=== PATIENT | male | born 1940 | race Caucasian/White ===

== ENCOUNTER 2020-09-17 08:20 | Outpatient (REF) | payer MEDICARE, SELFPAY ==
[2020-09-17 09:35] LABS: Hematocrit 33.1 % (42-52); Hemoglobin 10.1 g/dl (14.0-18.0); Mean Corpuscular HGB Conc 30.5 g/dl (31.0-36.0); Mean Corpuscular Hemoglobin 29.9 pg (27.0-33.0); Mean Corpuscular Volume 97.9 fL (80-98); Mean Platelet Volume 11.5 fL (9.4-12.4); NRBC Pct Auto 0.9 /100WBC (0.0-0.2); Platelet Count 299 X10*3/uL (160-400); Red Blood Count 3.38 X10*6/uL (4.60-5.80); Red Cell Distribution Width 18.8 % (11.0-16.0)
[2020-09-17 10:09] LABS: Alanine Aminotransferase 26 U/L (0-40); Albumin Level 4.3 g/dL (3.5-5.0); Alkaline Phosphatase 98 U/L (39-117); Anion Gap 11 (12-20); Aspartate Amino Transferase 42 U/L (5-37); Bilirubin Total 0.8 mg/dL (0.0-1.0); Blood Urea Nitrogen 16 mg/dL (9-16); Calcium 8.5 mg/dL (8.4-10.2); Carbon Dioxide 30 mmol/L (22-29); Chloride 103 mmol/L (96-108); Cholesterol 102 mg/dL; Estimated Glomerular Filt Rate > 60; Glucose Fasting 93 mg/dL (60-99); HDL Cholesterol 20 mg/dL; LDL Cholesterol Calculated 49 mg/dl; Potassium 4.6 mmol/l (3.3-5.1); Sodium 139 mmol/L (135-145); Total Protein 6.6 g/dL (6.5-8.0); Triglycerides 165 mg/dL
[2020-09-17 10:20] LABS: TSH reflex Free T4 3.04 mIU/mL (0.32-4.0)
[2020-09-17 10:33] LABS: Folate 7.3 ng/mL (> or = 4.0); Vitamin B12 670 pg/mL (200-900)
[2020-09-17 10:57] LABS: Atypical Lymph Absolute Manual 0.1 x10*3/uL; Atypical Lymphs Percent Manual 1 % (0-6); Band Neutrophils Percent 32 % (3-5); Basophils Abs Manual 0.1 X10*3/uL (0.0-0.3); Basophils Percent Manual 1 % (0-1); Blast Percent 1 %; Blastocytes Absolute 0.1 X10*3/uL; Lymphocytes Absolute Manual 1.3 X10*3/uL (0.6-4.8); Lymphocytes Percent Manual 13 % (20-40); Metamyelocytes Absolute 0.4 X10*3/uL; Metamyelocytes Percent 4 %; Monocytes Absolute Manual 0.1 X10*3/uL (0.0-1.2); Monocytes Percent Manual 1 % (2-11); Myelocytes Absolute 0.2 X10*/uL; Myelocytes Percent 2 %; Neutrophils Absolute Manual 7.6 X10*3/uL (2.2-7.9); Neutrophils Percent Manual 44 % (45-73); Nucleated Red Blood Cells 3 /100WBC (0-0); Promyelocytes Absolute 0.1 X10*3/uL; Promyelocytes Percent 1 %; RBC Morphology NOTED
[2020-09-17 10:58] LABS: Microcytosis 1+; Tear Drop Cells 2+
[2020-09-17 10:59] LABS: Hypochromasia 1+; Macrocytosis 1+; Ovalocytes 1+; Platelet Estimate NORMAL (NORMAL); Platelet Morphology Comment NORMAL
== END 2020-09-17 08:21 | disposition home or self-care (01) ==
LOC: HO.LAB 08:20
PROVIDERS: PCP Internal Medicine; Visit Provider Internal Medicine
DX: I25.10 Atherosclerotic heart disease of native coronary artery without angina pectoris (principal); E78.00 Pure hypercholesterolemia, unspecified; G30.9 Alzheimer's disease, unspecified
CPT/HCPCS: 36415; 80053; 80061; 82607; 82746; 84443; 85007; 85027; 85060

== ENCOUNTER 2020-11-02 | Outpatient (REF) | payer MEDICARE, SELFPAY ==
[2020-11-02 11:01] LABS: Hematocrit 29.6 % (42-52); Hemoglobin 9.3 g/dl (14.0-18.0); Mean Corpuscular HGB Conc 31.4 g/dl (31.0-36.0); Mean Corpuscular Hemoglobin 30.8 pg (27.0-33.0); Mean Platelet Volume 11.8 fL (9.4-12.4); NRBC Pct Auto 0.8 /100WBC (0.0-0.2); Platelet Count 255 X10*3/uL (160-400); Red Blood Count 3.02 X10*6/uL (4.60-5.80); Red Cell Distribution Width 19.4 % (11.0-16.0); White Blood Count 7.9 X10*3/uL (4.8-10.8)
[2020-11-02 11:30] LABS: Alanine Aminotransferase 24 U/L (0-40); Albumin Level 4.1 g/dL (3.5-5.0); Alkaline Phosphatase 98 U/L (39-117); Anion Gap 11 (12-20); Aspartate Amino Transferase 46 U/L (5-37); Bilirubin Total 0.8 mg/dL (0.0-1.0); Blood Urea Nitrogen 16 mg/dL (9-16); Calcium 8.5 mg/dL (8.4-10.2); Carbon Dioxide 29 mmol/L (22-29); Chloride 103 mmol/L (96-108); Estimated Glomerular Filt Rate > 60; Glucose Random 175 mg/dL (60-115); Potassium 4.2 mmol/l (3.3-5.1); Sodium 139 mmol/L (135-145); Total Protein 6.4 g/dL (6.5-8.0)
[2020-11-02 11:36] LABS: Atypical Lymph Absolute Manual 0.1 x10*3/uL; Atypical Lymphs Percent Manual 1 % (0-6); Band Neutrophils Percent 27 % (3-5); Basophils Abs Manual 0.2 X10*3/uL (0.0-0.3); Basophils Percent Manual 3 % (0-1); Eosinophils Absolute Manual 0.3 X10*3/UL (0.0-0.8); Eosinophils Percent Manual 4 % (0-4); Lymphocytes Absolute Manual 1.2 X10*3/uL (0.6-4.8); Lymphocytes Percent Manual 15 % (20-40); Metamyelocytes Absolute 0.6 X10*3/uL; Metamyelocytes Percent 7 %; Monocytes Absolute Manual 0.2 X10*3/uL (0.0-1.2); Monocytes Percent Manual 2 % (2-11); Myelocytes Absolute 0.4 X10*/uL; Myelocytes Percent 5 %; Neutrophils Absolute Manual 4.9 X10*3/uL (2.2-7.9); Neutrophils Percent Manual 35 % (45-73); Promyelocytes Absolute 0.1 X10*3/uL; Promyelocytes Percent 1 %
[2020-11-02 11:37] LABS: Acanthocytes 1+; Microcytosis 1+; Platelet Estimate NORMAL (NORMAL); Platelet Morphology Comment L; Polychromasia 1+; RBC Morphology NOTED
[2020-11-02 11:38] LABS: Ovalocytes 2+; Tear Drop Cells 2+
== END 2020-11-02 00:01 ==
LOC: HO.LHD
PROVIDERS: Visit Provider Internal Medicine Medical Oncology
DX: D46.9 Myelodysplastic syndrome, unspecified (principal)
CPT/HCPCS: 36415; 80053; 85007; 85027

== ENCOUNTER 2020-12-04 06:41 | Outpatient (REF) | payer MEDICARE, SELFPAY ==
[2020-12-04 10:26] LABS: Hematocrit 29.3 % (42-52); Hemoglobin 9.3 g/dl (14.0-18.0); Mean Corpuscular HGB Conc 31.7 g/dl (31.0-36.0); Mean Corpuscular Hemoglobin 31.5 pg (27.0-33.0); Mean Corpuscular Volume 99.3 fL (80-98); Mean Platelet Volume 11.8 fL (9.4-12.4); NRBC Pct Auto 0.8 /100WBC (0.0-0.2); Platelet Count 248 X10*3/uL (160-400); Red Blood Count 2.95 X10*6/uL (4.60-5.80); Red Cell Distribution Width 19.1 % (11.0-16.0)
[2020-12-04 11:01] LABS: Alanine Aminotransferase 22 U/L (0-40); Albumin Level 4.1 g/dL (3.5-5.0); Alkaline Phosphatase 102 U/L (39-117); Anion Gap 12 (12-20); Aspartate Amino Transferase 44 U/L (5-37); Bilirubin Total 0.8 mg/dL (0.0-1.0); Blood Urea Nitrogen 15 mg/dL (9-16); Calcium 8.5 mg/dL (8.4-10.2); Carbon Dioxide 28 mmol/L (22-29); Chloride 102 mmol/L (96-108); Estimated Glomerular Filt Rate > 60; Glucose Random 183 mg/dL (60-115); Potassium 4.2 mmol/l (3.3-5.1); Sodium 138 mmol/L (135-145); Total Protein 6.3 g/dL (6.5-8.0)
== END 2020-12-04 06:42 | disposition home or self-care (01) ==
LOC: HO.LHD 06:41
PROVIDERS: Visit Provider Internal Medicine Medical Oncology
DX: R79.89 Other specified abnormal findings of blood chemistry (principal)
CPT/HCPCS: 36415; 80053; 85027

== ENCOUNTER 2021-01-01 00:45 | Outpatient (REF) | payer MEDICARE, SELFPAY ==
[2021-01-01 10:49] LABS: Hematocrit 28.3 % (42-52); Hemoglobin 8.8 g/dl (14.0-18.0); Mean Corpuscular HGB Conc 31.1 g/dl (31.0-36.0); Mean Corpuscular Hemoglobin 30.8 pg (27.0-33.0); Mean Platelet Volume 11.8 fL (9.4-12.4); Platelet Count 247 X10*3/uL (160-400); Red Blood Count 2.86 X10*6/uL (4.60-5.80); Red Cell Distribution Width 19.1 % (11.0-16.0); White Blood Count 8.5 X10*3/uL (4.8-10.8)
[2021-01-01 10:54] LABS: NRBC Pct Auto 1.1 /100WBC (0.0-0.2)
[2021-01-01 11:16] LABS: Alanine Aminotransferase 24 U/L (0-40); Albumin Level 3.8 g/dL (3.5-5.0); Alkaline Phosphatase 110 U/L (39-117); Anion Gap 10 (12-20); Aspartate Amino Transferase 43 U/L (5-37); Blood Urea Nitrogen 13 mg/dL (9-16); Calcium 8.3 mg/dL (8.4-10.2); Carbon Dioxide 30 mmol/L (22-29); Chloride 104 mmol/L (96-108); Estimated Glomerular Filt Rate > 60; Glucose Random 120 mg/dL (60-115); Potassium 4.4 mmol/L (3.3-5.1); Sodium 140 mmol/L (135-145); Total Protein 5.7 g/dL (6.5-8.0)
== END 2021-01-01 00:46 | disposition home or self-care (01) ==
LOC: HO.LHD 00:45
PROVIDERS: Visit Provider Internal Medicine Medical Oncology
DX: D64.9 Anemia, unspecified (principal)
CPT/HCPCS: 36415; 80053; 85027

== ENCOUNTER 2021-01-29 06:53 | Outpatient (REF) | payer MEDICARE, SELFPAY ==
[2021-01-29 11:04] LABS: Hematocrit 27.6 % (42-52); Hemoglobin 8.5 g/dl (14.0-18.0); Mean Corpuscular HGB Conc 30.8 g/dl (31.0-36.0); Mean Corpuscular Hemoglobin 30.8 pg (27.0-33.0); Mean Platelet Volume 11.8 fL (9.4-12.4); NRBC Pct Auto 0.9 /100WBC (0.0-0.2); Platelet Count 244 X10*3/uL (160-400); Red Blood Count 2.76 X10*6/uL (4.60-5.80); Red Cell Distribution Width 19.6 % (11.0-16.0); White Blood Count 8.7 X10*3/uL (4.8-10.8)
[2021-01-29 11:31] LABS: Alanine Aminotransferase 15 U/L (0-40); Albumin Level 3.9 g/dL (3.5-5.0); Alkaline Phosphatase 109 U/L (39-117); Anion Gap 12 (12-20); Aspartate Amino Transferase 40 U/L (5-37); Blood Urea Nitrogen 16 mg/dL (9-16); Calcium 8.4 mg/dL (8.4-10.2); Carbon Dioxide 29 mmol/L (22-29); Chloride 102 mmol/L (96-108); Estimated Glomerular Filt Rate > 60; Glucose Random 183 mg/dL (60-115); Potassium 3.9 mmol/L (3.3-5.1); Sodium 139 mmol/L (135-145); Total Protein 5.9 g/dL (6.5-8.0)
[2021-01-29 12:09] LABS: Atypical Lymph Absolute Manual 0.1 x10*3/uL; Atypical Lymphs Percent Manual 1 % (0-6); Band Neutrophils Percent 24 % (3-5); Basophils Abs Manual 0.1 X10*3/uL (0.0-0.3); Basophils Percent Manual 1 % (0-1); Eosinophils Absolute Manual 0.2 X10*3/UL (0.0-0.8); Eosinophils Percent Manual 2 % (0-4); Lymphocytes Absolute Manual 1.2 X10*3/uL (0.6-4.8); Lymphocytes Percent Manual 14 % (20-40); Metamyelocytes Absolute 0.1 X10*3/uL; Metamyelocytes Percent 1 %; Monocytes Absolute Manual 0.3 X10*3/uL (0.0-1.2); Monocytes Percent Manual 3 % (2-11); Myelocytes Absolute 0.1 X10*/uL; Myelocytes Percent 1 %; Neutrophils Absolute Manual 6.6 X10*3/uL (2.2-7.9); Neutrophils Percent Manual 52 % (45-73); Nucleated Red Blood Cells 1 /100WBC (0-0); Promyelocytes Absolute 0.1 X10*3/uL; Promyelocytes Percent 1 %
[2021-01-29 12:11] LABS: Macrocytosis 1+; RBC Morphology NOTED
[2021-01-29 12:12] LABS: Hypochromasia 1+; Polychromasia 2+
[2021-01-29 12:14] LABS: Tear Drop Cells 1+
[2021-01-29 12:15] LABS: Platelet Estimate NORMAL (NORMAL); Platelet Morphology Comment NORMAL
[2021-02-01 14:40] LABS: Cholesterol 100 mg/dL; HDL Cholesterol 15 mg/dL; LDL Cholesterol Calculated 36 mg/dl; Triglycerides 247 mg/dL
== END 2021-01-29 06:54 | disposition home or self-care (01) ==
LOC: HO.LHD 06:53
PROVIDERS: Visit Provider Internal Medicine Medical Oncology
DX: D64.9 Anemia, unspecified (principal)
CPT/HCPCS: 36415; 80053; 80061; 85007; 85025; 85027

== ENCOUNTER 2021-02-19 04:30 | Outpatient (REF) | payer MEDICARE, SELFPAY ==
[2021-02-19 10:14] LABS: Hematocrit 31.2 % (42-52); Hemoglobin 9.3 g/dl (14.0-18.0); Mean Corpuscular HGB Conc 29.8 g/dl (31.0-36.0); Mean Corpuscular Hemoglobin 30.3 pg (27.0-33.0); Mean Corpuscular Volume 101.6 fL (80-98); Mean Platelet Volume 11.9 fL (9.4-12.4); Platelet Count 260 X10*3/uL (160-400); Red Blood Count 3.07 X10*6/uL (4.60-5.80); Red Cell Distribution Width 19.6 % (11.0-16.0); White Blood Count 11.8 X10*3/uL (4.8-10.8)
[2021-02-19 10:17] LABS: NRBC Pct Auto 1.4 /100WBC (0.0-0.2)
[2021-02-19 10:37] LABS: Alanine Aminotransferase 24 U/L (0-40); Albumin Level 4.1 g/dL (3.5-5.0); Alkaline Phosphatase 131 U/L (39-117); Anion Gap 13 (12-20); Aspartate Amino Transferase 51 U/L (5-37); Bilirubin Total 1.1 mg/dL (0.0-1.0); Blood Urea Nitrogen 14 mg/dL (9-16); Calcium 8.6 mg/dL (8.4-10.2); Carbon Dioxide 30 mmol/L (22-29); Chloride 103 mmol/L (96-108); Estimated Glomerular Filt Rate > 60; Glucose Random 149 mg/dL (60-115); Potassium 4.7 mmol/L (3.3-5.1); Sodium 141 mmol/L (135-145); Total Protein 6.5 g/dL (6.5-8.0)
[2021-02-19 10:39] LABS: Cholesterol 116 mg/dL; Triglycerides 209 mg/dL
[2021-02-19 10:53] LABS: HDL Cholesterol 19 mg/dL; LDL Cholesterol Calculated 56 mg/dl
== END 2021-02-19 04:31 | disposition home or self-care (01) ==
LOC: HO.LHD 04:30
PROVIDERS: Visit Provider Internal Medicine Medical Oncology
DX: E78.00 Pure hypercholesterolemia, unspecified (principal)
CPT/HCPCS: 36415; 80053; 80061; 85027

== ENCOUNTER 2021-03-07 11:30 | Outpatient (RCR) | payer MEDICARE, SELFPAY ==
[2020-10-16 13:57] VITALS: BP 141/90; PULSE 82; RESP 12; TEMP 37.2; O2SAT 97; BMI 24.9
[2020-10-16 15:05] LABS: Eos%MD 1.8 %; Hematocrit 29.7 % (42-52); Hemoglobin 9.1 g/dl (14.0-18.0); IG%MD 16.8 %; Immature Retic Fraction 33.5 % (2.3-13.4); Lymph%MD 10.4 %; Mean Corpuscular HGB Conc 30.6 g/dl (31.0-36.0); Mean Corpuscular Hemoglobin 30.1 pg (27.0-33.0); Mean Corpuscular Volume 98.3 fL (80-98); Mean Platelet Volume 11.5 fL (9.4-12.4); Mono%MD 5.3 %; Neut%MD 64.7 %; Platelet Count 289 X10*3/uL (160-400); Red Blood Count 3.02 X10*6/uL (4.60-5.80); Red Cell Distribution Width 19.4 % (11.0-16.0); Retic HGB Equivalent 30.5 pg (30.0-35.0); Reticulocyte Percent 3.4 % (0.5-1.8); Reticulocytes Absolute 0.102 X10*6/uL (0.026-0.095); White Blood Count 9.7 X10*3/uL (4.8-10.8)
[2020-10-16 15:09] LABS: NRBC Pct Auto 1.3 /100WBC (0.0-0.2)
--- NOTE | 2020-10-16 15:17 | PM.HEMONCCN ---
Subjective - Subjective Chief complaint: consult for anemia. Patient: new to practice Consult date: 10/16/20 Requesting Physician: Matteo. Primary Care Provider: Adriel Felipe MD Medical Summary: DIAGNOSIS: ANEMIA. HPI - Consult Narrative Reason for consult: NC/NC ANEMIA Narrative: Shay Cano is a pleasant 80 year old gentleman, with H/O Alzheimer's disease. He is non verbal. Hard to understand how much he understands. He is total care. His bathes and feeds him. He has a good apetite. He has gained weight. Lately it seems he has been getting more tired. His legs seemed to be weaker. He does get constipated and needs to be on a stool softener. Review of Systems - Constitutional Reports system reviewed and no additional complaints, except as documented, Reports fatigue, Denies fever(s) - Eyes Reports system reviewed and no additional complaints, except as documented - ENT Reports system reviewed and no additional complaints, except as documented - Cardiovascular Reports system reviewed and no additional complaints, except as documented PMFSH Medical History: Medical History (Last Updated 09/24/20 @ 13:03 by Adriel Felipe MD) Alzheimer's dementia Constipation Coronary artery disease Pure hypercholesterolemia Family History: Family History (Last Updated 10/16/20 @ 13:59 by Kirsty Walker) Father Medical history unknown Heart disease Mother Medical history unknown Family/Other Heart problem Brother Heart disease Surgical History: Surgical History (Last Reviewed 10/12/20 @ 20:42 by Adriel Felipe MD) History of bladder stone History of cholecystectomy History of cystoscopy History of intravascular stent placement Hx of transurethral resection of prostate S/P CABG x 3 Smoking status: Former smoker Home Medications and Allergies Home Medications Medication Instructions Recorded Confirmed Type aspirin 81 mg tablet,delayed 81 mg PO DAILY 09/24/20 10/16/20 History release rosuvastatin 20 mg tablet 20 mg PO DAILY 09/24/20 10/16/20 History sennosides 8.6 mg tablet 17.2 mg PO BEDTIME PRN 09/24/20 10/16/20 History Allergies Allergy/AdvReac Type Severity Reaction Status Date / Time simvastatin [SIMVASTATIN] Allergy Unknown UNKNOWN, Verified 09/24/20 13:00 rash Physical Exam Vital signs: Vital Signs Temp 98.9 F 10/16/20 13:57 Pulse 82 10/16/20 13:57 Resp 12 10/16/20 13:57 BP 141/90 H 10/16/20 13:57 Pulse Ox 97 10/16/20 13:57 Intake & Output 10/15/20 10/16/20 10/16/20 18:59 06:59 18:59 Other: Weight 67.9 kg Weight 67.9 kg - Constitutional Present: no acute distress - Routine HEENT Exam Head: Present: normal inspection ENT: Present: mucous membranes moist - Routine Neck Exam Present: supple - Routine Respiratory Exam Present: CTAB - Routine Cardiovascular Exam Cardiovascular: Present: RRR, S2 - Routine Abdominal Exam Present: soft, nontender - Routine Rectal Exam Patient deferred: digital exam - Routine Extremities Exam Present: nontender - Routine Skin Exam Present: intact - Routine Neurological Exam Present: alert, altered mental status - Detailed Neurological Exam: Coma Scale Eye Opening: Spontaneous (4) Verbal Response: Confused (4) - Routine Psychiatric Exam Present: flat affect, cooperative Hem/Onc Consult Result - Labs CBC & Chem 7: 10/16/20 14:55 10/16/20 14:55 Labs: Short CBC 10/16/20 Range/Units 14:55 WBC 9.7 (4.8-10.8) X10*3/uL Hgb 9.1 L (14.0-18.0) g/dl Hct 29.7 L (42-52) % Plt Count 289 (160-400) X10*3/uL Assessment and Plan (1) Anemia Status: Acute This is a pleasant 80-year-old gentleman with history of Alzheimer's Disease who has deteriorated in the past couple of years. He has been gradually getting more anemic. His CBC from March 08: WBC 10.5, ABS NEUT COUNT 8.0, ANC 6.7,RBC 4.02, HGB 12.6, HCT 37.7,MCV 93.7, MCH 31.4, MCHC 33.5, PLATELET 360. His CBC: From September 17: WBC 10, HGB 10.1, PLT 299. Peripheral smear: Leukoerythroblastosis. Left-shifted granulocytes are present, Including rare blasts. A few nucleated red blood cells are seen as well as some ovalocytes and Dacrocyanosis. Findings raise the possibility of a marrow disorder. 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 DIFFERENTIAL DIAGNOSIS: 2. IRON DEFICIENCY ANEMIA: will check iron studies and a ferritin. 3. HEMOLYTIC ANEMIA: will check a hemolytic screen. 4. B12/FOLATE DEFICIENCY: Check B12 and folate levels. 5. ACD: from kidney disease. 6. ANOTHER MYELO INFILTRATIVE DISORDER I.E. MULTIPLE MYELOMA, OR LYMPHOMA. PLAN: Will proceed with an anemia workup. Check LDH and SIEP. I will proceed with a type and screen in case he needs a transfusion. I discuss the role of a bone marrow exam as a next step in the workup. His is going to talk to her daughter and then give me a call back. If she wishes to proceed I will set it up. He will return in 2 weeks for a follow-up visit. Thank you, CC: Dr. Darrius Felipe. SSS. Patient's daughter called the following day. She said they had a family meeting with her mom and brothers. They are concerned that he would not understand and can be scared from the bone marrow procedure. They also decided not to proceed with any chemotherapy even if there were to make a diagnosis. They would like to focus more on palliative care. I did offer blood transfusions if they were interested. she will give me a call back once they decide.
[2020-10-16 15:30] LABS: Alanine Aminotransferase 25 U/L (0-40); Albumin Level 4.3 g/dL (3.5-5.0); Alkaline Phosphatase 92 U/L (39-117); Anion Gap 12 (12-20); Aspartate Amino Transferase 42 U/L (5-37); Bilirubin Total 0.8 mg/dL (0.0-1.0); Blood Urea Nitrogen 18 mg/dL (9-16); Calcium 8.6 mg/dL (8.4-10.2); Carbon Dioxide 28 mmol/L (22-29); Chloride 103 mmol/L (96-108); Creatinine Clr Calc Pharmacy 67.1; Estimated Glomerular Filt Rate > 60; Glucose Random 95 mg/dL (60-115); Iron 112 mcg/dL (45-160); Lactate Dehydrogenase 469 U/L (118-273); Percent Iron Saturation 41 % (15-50); Potassium 4.9 mmol/l (3.3-5.1); Sodium 138 mmol/L (135-145); Total Iron Binding Capacity 270 mcg/dL (228-428); Total Protein 6.5 g/dL (6.5-8.0); Unsaturated Iron Binding 158 ug/dL
[2020-10-16 15:47] LABS: Atypical Lymph Absolute Manual 0.1 x10*3/uL; Atypical Lymphs Percent Manual 1 % (0-6); Band Neutrophils Percent 23 % (3-5); Basophils Abs Manual 0.2 X10*3/uL (0.0-0.3); Basophils Percent Manual 2 % (0-1); Lymphocytes Absolute Manual 1.4 X10*3/uL (0.6-4.8); Lymphocytes Percent Manual 14 % (20-40); Metamyelocytes Absolute 0.5 X10*3/uL; Metamyelocytes Percent 5 %; Monocytes Absolute Manual 0.3 X10*3/uL (0.0-1.2); Monocytes Percent Manual 3 % (2-11); Myelocytes Absolute 0.7 X10*/uL; Myelocytes Percent 7 %; Neutrophils Absolute Manual 6.6 X10*3/uL (2.2-7.9); Neutrophils Percent Manual 45 % (45-73)
[2020-10-16 15:48] LABS: Ovalocytes 1+; Polychromasia 1+; RBC Morphology NOTED
[2020-10-16 15:49] LABS: Platelet Estimate NORMAL (NORMAL); Platelet Morphology Comment NORMAL; Tear Drop Cells 1+
[2020-10-16 15:50] LABS: Ferritin 176 ng/mL (20-250); Large Platelet PRESENT
[2020-10-16 16:02] LABS: Vitamin B12 630 pg/mL (200-900)
--- NOTE | 2020-10-17 12:32 | MHC.HEMONC ---
HOME DRAW request CBC/D - Dr. Javed would like Home Draw for Mr. Day on/around Thursday - Call to [employer] Jessica renner [phone] and Janay renner [phone] @ [facility] [place] lab, No answer. Left msg with Pt's name, #, and address. Pt's , Denisse, notified of plan. I will await call from lab for confirmation. Will cont. to follow until task completed.
--- NOTE | 2020-10-17 17:52 | MHC.HEMONC ---
HOME DRAW REQUEST HAS BEEN SCHEDULED with Jessica hopson at [facility] [place] lab for Thursday, . They will arrange time w pt's . Mrs. Cano notified and in agreement.
[2020-10-18 16:57] LABS: Haptoglobin 44 mg/dL (43-212)
[2020-10-19 06:12] LABS: IgA 153 mg/dL (70-320); IgG 986 mg/dL (600-1540); IgM 57 mg/dL (50-300)
--- NOTE | 2020-10-29 12:25 | MHC.HEMONC ---
PT'S LIAM CALLED TO INQUIRE ABOUT THE PT'S LABORATORY HOME DRAW IF IT WAS SET-UP BECAUSE NO ONE HAS BEEN TO THE HOUSE TO DRAW THE LAB DRAW
--- NOTE | 2020-10-29 12:31 | MHC.HEMONC ---
[employer] [employer] WILL SET-UP LABORATORY HOME DRAW FOR THE PATIENT
--- NOTE | 2020-11-01 08:41 | MHC.HEMONCMA ---
Called and spoke with Leslie, she said she is sorry she didnt get back to me, she thought someone got my message and lolly the patient. She states that she will call and have the patient scheduled for tomorrow. I refaxed the order.
[2020-11-12 11:34] VITALS: BP 151/83; PULSE 82; RESP 12; TEMP 36.7; O2SAT 100; BMI 24.3
--- NOTE | 2020-11-12 13:25 | MHC.HEMONCMA ---
Patient came in with his and family friend for a follow up, pts states he is doing well. Pt has home draw once a month and they would like to have his next f/u as a phone call. I scheduled the patient for 02/14/2021 at 2:30pm for a telehealth with dr neal.
--- NOTE | 2020-11-12 15:31 | PM.HEMONCPN ---
Medical Summary - Medical Summary Date of Service: 11/12/20 Chief complaint: Follow-up for anemia. Medical Summary: DIAGNOSIS: ANEMIA. Interval History Interval history: Shay Cano is a pleasant 80 year old gentleman, with H/O Alzheimer's disease. He is non verbal. Hard to understand how much he understands. He is total care. His bathes and feeds him. He has a good apetite. He has gained weight. Lately it seems he has been getting more tired. His legs seemed to be weaker. He does get constipated and needs to be on a stool softener. Review of Systems - Constitutional Reports system reviewed and no additional complaints, except as documented, Reports fatigue - Eyes Reports system reviewed and no additional complaints, except as documented - ENT Reports system reviewed and no additional complaints, except as documented - Cardiovascular Reports system reviewed and no additional complaints, except as documented - Respiratory Reports no additional respiratory complaints - Gastrointestinal Reports system reviewed and no additional complaints, except as documented - Genitourinary Genitourinary: Reports no additional male genitourinary complaints - Musculoskeletal Reports system reviewed and no additional complaints, except as documented - Integumentary/Breasts Skin/Breast: Reports no additional skin complaints - Neurologic Reports system reviewed and no additional complaints, except as documented - Psychiatric Reports system reviewed and no additional complaints, except as documented - Endocrine Reports no additional endocrine complaints - Hematologic/Lymphatic Reports system reviewed and no additional complaints, except as documented - Allergic/Immunologic Reports system reviewed and no additional complaints, except as documented PMFSH Medical History: Medical History (Last Updated 09/24/20 @ 13:03 by Adriel Felipe MD) Alzheimer's dementia Constipation Coronary artery disease Pure hypercholesterolemia Functional capacity: wheelchair bound Patient : No Family History: Family History (Last Updated 10/16/20 @ 13:59 by Kirsty Walker) Father Medical history unknown Heart disease Mother Medical history unknown Family/Other Heart problem Brother Heart disease Surgical History: Surgical History (Last Reviewed 10/12/20 @ 20:42 by Adriel Felipe MD) History of bladder stone History of cholecystectomy History of cystoscopy History of intravascular stent placement Hx of transurethral resection of prostate S/P CABG x 3 Smoking status: Former smoker Home Medications and Allergies Home Medications Medication Instructions Recorded Confirmed Type aspirin 81 mg tablet,delayed 81 mg PO DAILY 09/24/20 10/16/20 History release rosuvastatin 20 mg tablet 20 mg PO DAILY 09/24/20 10/16/20 History sennosides 8.6 mg tablet 17.2 mg PO BEDTIME PRN 09/24/20 10/16/20 History mupirocin calcium 2 % topical cream 1 appl TOPICAL TID 11/07/20 11/12/20 History Allergies Allergy/AdvReac Type Severity Reaction Status Date / Time simvastatin [SIMVASTATIN] Allergy Unknown UNKNOWN, Verified 09/24/20 13:00 rash Exam Vital signs: Vital Signs Temp 98.0 F 11/12/20 11:34 Pulse 82 11/12/20 11:34 Resp 12 11/12/20 11:34 BP 151/83 H 11/12/20 11:34 Pulse Ox 100 11/12/20 11:34 Intake & Output 11/11/20 11/12/20 11/12/20 18:59 06:59 18:59 Other: Weight 66.3 kg Weight 66.3 kg Body Mass Index 24.3 - Constitutional Present: no acute distress - Routine HEENT Exam Head: Present: normal inspection - Routine Respiratory Exam Present: CTAB - Routine Cardiovascular Exam Cardiovascular: Present: RRR, S2 - Routine Abdominal Exam Present: soft, nontender - Routine Extremities Exam Present: nontender - Routine Skin Exam Present: intact - Routine Neurological Exam Present: alert, altered mental status - Detailed Neurological Exam: Coma Scale Eye Opening: Spontaneous (4) Data - Labs CBC & Chem 7: 10/16/20 14:55 10/16/20 14:55 Labs: 10/16/20 14:46 Type and Screen Routine 10/16/20 14:55 Complete Blood Count Man Dif Routine Comprehensive Met. Panel Routine Ferritin Routine Haptoglobin Routine IRON PROFILE Routine Immunofixation Pnl, Serum Routine Lactate Dehydrogenase Routine Reticulocyte Count Routine Vitamin B12 and Folate Routine Laboratory Last Values WBC 9.7 X10*3/uL (4.8-10.8) 10/16/20 14:55 RBC 3.02 X10*6/uL (4.60-5.80) L 10/16/20 14:55 Hgb 9.1 g/dl (14.0-18.0) L 10/16/20 14:55 Hct 29.7 % (42-52) L 10/16/20 14:55 MCV 98.3 fL (80-98) H 10/16/20 14:55 MCH 30.1 pg (27.0-33.0) 10/16/20 14:55 MCHC 30.6 g/dl (31.0-36.0) L 10/16/20 14:55 RDW 19.4 % (11.0-16.0) H 10/16/20 14:55 Plt Count 289 X10*3/uL (160-400) 10/16/20 14:55 MPV 11.5 fL (9.4-12.4) 10/16/20 14:55 Absolute Nucleated RBC 0.130 X10*3/uL (0.0-0.012) H 10/16/20 14:55 Nucleated RBC % (auto) 1.3 /100WBC (0.0-0.2) H 10/16/20 14:55 Neutrophils % (Manual) 45 % (45-73) 10/16/20 14:55 Band Neutrophils % 23 % (3-5) H 10/16/20 14:55 Lymphocytes % (Manual) 14 % (20-40) L 10/16/20 14:55 Atypical Lymphs % (Man) 1 % (0-6) 10/16/20 14:55 Monocytes % (Manual) 3 % (2-11) 10/16/20 14:55 Basophils % (Manual) 2 % (0-1) H 10/16/20 14:55 Metamyelocytes % 5 % 10/16/20 14:55 Myelocytes % 7 % 10/16/20 14:55 Abs Neuts (Manual) 6.6 X10*3/uL (2.2-7.9) 10/16/20 14:55 Lymphocytes # (Manual) 1.4 X10*3/uL (0.6-4.8) 10/16/20 14:55 Atyp Lymphs # (Manual) 0.1 x10*3/uL 10/16/20 14:55 Monocytes # (Manual) 0.3 X10*3/uL (0.0-1.2) 10/16/20 14:55 Basophils # (Manual) 0.2 X10*3/uL (0.0-0.3) 10/16/20 14:55 Metamyelocytes # 0.5 X10*3/uL 10/16/20 14:55 Myelocytes # 0.7 X10*/uL 10/16/20 14:55 Platelet Estimate NORMAL (NORMAL) 10/16/20 14:55 Large Platelets PRESENT 10/16/20 14:55 Plt Morphology Comment NORMAL 10/16/20 14:55 RBC Morphology NOTED 10/16/20 14:55 Polychromasia 1+ 10/16/20 14:55 Tear Drop Cells 1+ 10/16/20 14:55 Ovalocytes 1+ 10/16/20 14:55 Absolute Retic 0.102 X10*6/uL (0.026-0.095) H 10/16/20 14:55 Percent Retic 3.4 % (0.5-1.8) H 10/16/20 14:55 Immature Retic Fraction 33.5 % (2.3-13.4) H 10/16/20 14:55 Retic Hgb Equivalent 30.5 pg (30.0-35.0) 10/16/20 14:55 Haptoglobin 44 mg/dL (43-212) 10/16/20 14:55 Sodium 138 mmol/L (135-145) 10/16/20 14:55 Potassium 4.9 mmol/l (3.3-5.1) 10/16/20 14:55 Chloride 103 mmol/L (96-108) 10/16/20 14:55 Carbon Dioxide 28 mmol/L (22-29) 10/16/20 14:55 Anion Gap 12 (12-20) 10/16/20 14:55 BUN 18 mg/dL (9-16) H 10/16/20 14:55 Creatinine 0.75 mg/dL (0.5-1.4) 10/16/20 14:55 Estim Creat Clear Calc 67.1 10/16/20 14:55 Estimated GFR > 60 10/16/20 14:55 Random Glucose 95 mg/dL (60-115) 10/16/20 14:55 Calcium 8.6 mg/dL (8.4-10.2) 10/16/20 14:55 Iron 112 mcg/dL (45-160) 10/16/20 14:55 TIBC 270 mcg/dL (228-428) 10/16/20 14:55 % Saturation 41 % (15-50) 10/16/20 14:55 Unsat Iron Binding 158 ug/dL 10/16/20 14:55 Ferritin 176 ng/mL (20-250) 10/16/20 14:55 Total Bilirubin 0.8 mg/dL (0.0-1.0) 10/16/20 14:55 AST 42 U/L (5-37) H 10/16/20 14:55 ALT 25 U/L (0-40) 10/16/20 14:55 Alkaline Phosphatase 92 U/L (39-117) 10/16/20 14:55 Lactate Dehydrogenase 469 U/L (118-273) H 10/16/20 14:55 Total Protein 6.5 g/dL (6.5-8.0) 10/16/20 14:55 Albumin 4.3 g/dL (3.5-5.0) 10/16/20 14:55 Vitamin B12 630 pg/mL (200-900) 10/16/20 14:55 Folate 7.0 ng/mL (> or = 4.0) 10/16/20 14:55 IgG Total 986 mg/dL (600-1540) 10/16/20 14:55 IgA Total 153 mg/dL (70-320) 10/16/20 14:55 IgM 57 mg/dL (50-300) 10/16/20 14:55 RAMEZ Interpretation SEE NOTE 10/16/20 14:55 Blood Type A Positive 10/16/20 14:46 Antibody Screen TNP 10/16/20 14:46 Progress Note: A/P (1) Anemia Status: Acute Assessment and plan: This is a pleasant 80-year-old gentleman with history of Alzheimer's Disease who has deteriorated in the past couple of years. He has been gradually getting more anemic. His CBC from March 08: WBC 10.5, ABS NEUT COUNT 8.0, ANC 6.7,RBC 4.02, HGB 12.6, HCT 37.7,MCV 93.7, MCH 31.4, MCHC 33.5, PLATELET 360. His CBC: From September 17: WBC 10, HGB 10.1, PLT 299. Peripheral smear: Leukoerythroblastosis. Left-shifted granulocytes are present, Including rare blasts. A few nucleated red blood cells are seen as well as some ovalocytes and Dacrocyanosis. Findings raise the possibility of a marrow disorder. 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 DIFFERENTIAL DIAGNOSIS: 2. IRON DEFICIENCY ANEMIA: will check iron studies and a ferritin. 3. HEMOLYTIC ANEMIA: will check a hemolytic screen. 4. B12/FOLATE DEFICIENCY: Check B12 and folate levels. 5. ACD: from kidney disease. 6. ANOTHER MYELO INFILTRATIVE DISORDER I.E. MULTIPLE MYELOMA, OR LYMPHOMA. l proceeded with an anemia workup. Checked LDH and SIEP. I proceeded with a type and screen in case he needs a transfusion. Patient's daughter called the following day. She said they had a family meeting with her mom and brothers. They are concerned that he would not understand and can be scared from the bone marrow procedure. They also decided not to proceed with any chemotherapy even if there were to make a diagnosis. They would like to focus more on palliative care. I did offer blood transfusions if they were interested. They would like to give blood transfusion as needed to help quality of life. Right now hemoglobin from 11/02 was 9.3. He is clinically stable. It is hard for them to bring him for appointments. PLAN: Will check labs on a monthly basis by phlebotomy at home. If he needs a transfusion will arrange for that. Otherwise he will return in 3 months for a follow-up visit. Thank you, CC: Dr. Darrius Felipe. SSS. - Time Spent With Patient Total time spent is greater than 50% in coordination of care (as documented) at patient's floor/unit and/or counseling patient: 25 - 35 minutes
--- NOTE | 2021-01-30 10:13 | MHC.HEMONC ---
pt called re: results of home draw yesterday. H and H trending down and pt reports weakness and swollen legs. Left labs for Dr Javed to review and pt to be called back tomorrow with plan.
--- NOTE | 2021-02-18 13:23 | PM.HEMONCPN ---
Medical Summary - Medical Summary Date of Service: 02/18/21 Chief complaint: F/U for Anemia. Medical Summary: DIAGNOSIS: ANEMIA. Interval History Interval history: Shay Cano is a pleasant 80 year old gentleman, with H/O Alzheimer's disease. He is non verbal. Hard to understand how much he understands. He is total care. His bathes and feeds him. A tele visit was held with his . She tells me that, lately it seems he has been getting more tired. His legs seemed to be weaker. He can hardly walk. He is mostly lying in bed. He denies any obvious chest pain or trouble breathing. He denies any abdominal pain, nausea nor vomiting. He bowels are constipated, despite being on a stool softener. He has not gone for the past 5 days. No gross blood in the bowels. He has a good apetite. He has gained weight. Review of Systems - Constitutional Reports no additional constitutional complaints, Reports fatigue, Denies fever(s), Reports lack of energy, Reports malaise, Reports weight gain - Eyes Reports no additional eye complaints - ENT Reports no additional ear, nose, mouth, and throat complaints - Cardiovascular Reports no additional cardiovascular complaints - Respiratory Reports no additional respiratory complaints - Gastrointestinal Reports no additional gastrointestinal complaints, Reports constipation - Genitourinary Genitourinary: Reports no additional male genitourinary complaints - Musculoskeletal Reports no additional musculoskeletal complaints - Integumentary/Breasts Skin/Breast: Reports no additional skin complaints - Neurologic Reports no additional neurologic complaints - Psychiatric Reports no additional psychiatric complaints - Endocrine Reports no additional endocrine complaints - Hematologic/Lymphatic Reports no additional hematologic/lymphatic complaints - Allergic/Immunologic Reports no additional allergic/immunologic complaints [facility] Medical History: Medical History (Last Reviewed 02/18/21 @ 15:45 by Maya Curtis) Alzheimer's dementia Constipation Coronary artery disease Pure hypercholesterolemia Functional capacity: wheelchair bound Family History: Family History (Last Reviewed 02/18/21 @ 15:45 by Maya Curtis) Father Medical history unknown Heart disease Mother Medical history unknown Family/Other Heart problem Brother Heart disease Surgical History: Surgical History (Last Reviewed 02/18/21 @ 15:45 by Maya Curtis) History of bladder stone History of cholecystectomy History of cystoscopy History of intravascular stent placement Hx of transurethral resection of prostate S/P CABG x 3 Social History: Social History (Last Reviewed 02/18/21 @ 15:45 by Maya Curtis) Living Situation History: Are you a primary property caretaker to a significant other at home: No Alcohol History: Alcohol intake: former Alcohol History Details: Alcohol intake frequency: does not drink Tobacco History: Smoking Status: Former smoker Tobacco Type: Cigarette Packs Per Day: 1 Years Smoked: 1979 Substance Use History: Use of substances other than those prescribed or required for medical reasons: No Domestic Abuse History: Have you been hit, kicked, punched, or otherwise hurt by someone within the past year? If so, by whom?: No Do you feel safe in your current relationship?: Yes Healthcare Practices: Hoahaoism Healthcare Practices: jehovah's witness Nutrition Assessment: Recently lost weight without trying: No Nutrition Risks: No Nutritional Risk Patient : No Poor oral hygiene: No Smoking status: Former smoker Home Medications and Allergies Home Medications Medication Instructions Recorded Confirmed Type aspirin 81 mg tablet,delayed 81 mg PO DAILY 09/24/20 10/16/20 History release rosuvastatin 20 mg tablet 20 mg PO DAILY 09/24/20 10/16/20 History Allergies Allergy/AdvReac Type Severity Reaction Status Date / Time simvastatin [SIMVASTATIN] Allergy Unknown UNKNOWN, Verified 09/24/20 13:00 rash Exam Vital signs: Vital Signs Temp 98.0 F 11/12/20 11:34 Pulse 82 11/12/20 11:34 Resp 12 11/12/20 11:34 BP 151/83 H 11/12/20 11:34 Pulse Ox 100 11/12/20 11:34 Weight 66.3 kg Body Mass Index 24.3 - Constitutional Present: no acute distress - Routine HEENT Exam Head: Present: normal inspection - Routine Respiratory Exam Present: CTAB - Routine Cardiovascular Exam Cardiovascular: Present: RRR, S2 - Routine Abdominal Exam Present: soft, nontender - Routine Extremities Exam Present: nontender - Routine Skin Exam Present: intact - Routine Neurological Exam Present: alert, altered mental status - Detailed Neurological Exam: Coma Scale Eye Opening: Spontaneous (4) Data - Labs CBC & Chem 7: 10/16/20 14:55 10/16/20 14:55 Labs: 10/16/20 14:46 Type and Screen Routine 10/16/20 14:55 Complete Blood Count Man Dif Routine Comprehensive Met. Panel Routine Ferritin Routine Haptoglobin Routine IRON PROFILE Routine Immunofixation Pnl, Serum Routine Lactate Dehydrogenase Routine Reticulocyte Count Routine Vitamin B12 and Folate Routine Laboratory Last Values WBC 9.7 X10*3/uL (4.8-10.8) 10/16/20 14:55 RBC 3.02 X10*6/uL (4.60-5.80) L 10/16/20 14:55 Hgb 9.1 g/dl (14.0-18.0) L 10/16/20 14:55 Hct 29.7 % (42-52) L 10/16/20 14:55 MCV 98.3 fL (80-98) H 10/16/20 14:55 MCH 30.1 pg (27.0-33.0) 10/16/20 14:55 MCHC 30.6 g/dl (31.0-36.0) L 10/16/20 14:55 RDW 19.4 % (11.0-16.0) H 10/16/20 14:55 Plt Count 289 X10*3/uL (160-400) 10/16/20 14:55 MPV 11.5 fL (9.4-12.4) 10/16/20 14:55 Absolute Nucleated RBC 0.130 X10*3/uL (0.0-0.012) H 10/16/20 14:55 Nucleated RBC % (auto) 1.3 /100WBC (0.0-0.2) H 10/16/20 14:55 Neutrophils % (Manual) 45 % (45-73) 10/16/20 14:55 Band Neutrophils % 23 % (3-5) H 10/16/20 14:55 Lymphocytes % (Manual) 14 % (20-40) L 10/16/20 14:55 Atypical Lymphs % (Man) 1 % (0-6) 10/16/20 14:55 Monocytes % (Manual) 3 % (2-11) 10/16/20 14:55 Basophils % (Manual) 2 % (0-1) H 10/16/20 14:55 Metamyelocytes % 5 % 10/16/20 14:55 Myelocytes % 7 % 10/16/20 14:55 Abs Neuts (Manual) 6.6 X10*3/uL (2.2-7.9) 10/16/20 14:55 Lymphocytes # (Manual) 1.4 X10*3/uL (0.6-4.8) 10/16/20 14:55 Atyp Lymphs # (Manual) 0.1 x10*3/uL 10/16/20 14:55 Monocytes # (Manual) 0.3 X10*3/uL (0.0-1.2) 10/16/20 14:55 Basophils # (Manual) 0.2 X10*3/uL (0.0-0.3) 10/16/20 14:55 Metamyelocytes # 0.5 X10*3/uL 10/16/20 14:55 Myelocytes # 0.7 X10*/uL 10/16/20 14:55 Platelet Estimate NORMAL (NORMAL) 10/16/20 14:55 Large Platelets PRESENT 10/16/20 14:55 Plt Morphology Comment NORMAL 10/16/20 14:55 RBC Morphology NOTED 10/16/20 14:55 Polychromasia 1+ 10/16/20 14:55 Tear Drop Cells 1+ 10/16/20 14:55 Ovalocytes 1+ 10/16/20 14:55 Absolute Retic 0.102 X10*6/uL (0.026-0.095) H 10/16/20 14:55 Percent Retic 3.4 % (0.5-1.8) H 10/16/20 14:55 Immature Retic Fraction 33.5 % (2.3-13.4) H 10/16/20 14:55 Retic Hgb Equivalent 30.5 pg (30.0-35.0) 10/16/20 14:55 Haptoglobin 44 mg/dL (43-212) 10/16/20 14:55 Sodium 138 mmol/L (135-145) 10/16/20 14:55 Potassium 4.9 mmol/l (3.3-5.1) 10/16/20 14:55 Chloride 103 mmol/L (96-108) 10/16/20 14:55 Carbon Dioxide 28 mmol/L (22-29) 10/16/20 14:55 Anion Gap 12 (12-20) 10/16/20 14:55 BUN 18 mg/dL (9-16) H 10/16/20 14:55 Creatinine 0.75 mg/dL (0.5-1.4) 10/16/20 14:55 Estim Creat Clear Calc 67.1 10/16/20 14:55 Estimated GFR > 60 10/16/20 14:55 Random Glucose 95 mg/dL (60-115) 10/16/20 14:55 Calcium 8.6 mg/dL (8.4-10.2) 10/16/20 14:55 Iron 112 mcg/dL (45-160) 10/16/20 14:55 TIBC 270 mcg/dL (228-428) 10/16/20 14:55 % Saturation 41 % (15-50) 10/16/20 14:55 Unsat Iron Binding 158 ug/dL 10/16/20 14:55 Ferritin 176 ng/mL (20-250) 10/16/20 14:55 Total Bilirubin 0.8 mg/dL (0.0-1.0) 10/16/20 14:55 AST 42 U/L (5-37) H 10/16/20 14:55 ALT 25 U/L (0-40) 10/16/20 14:55 Alkaline Phosphatase 92 U/L (39-117) 10/16/20 14:55 Lactate Dehydrogenase 469 U/L (118-273) H 10/16/20 14:55 Total Protein 6.5 g/dL (6.5-8.0) 10/16/20 14:55 Albumin 4.3 g/dL (3.5-5.0) 10/16/20 14:55 Vitamin B12 630 pg/mL (200-900) 10/16/20 14:55 Folate 7.0 ng/mL (> or = 4.0) 10/16/20 14:55 IgG Total 986 mg/dL (600-1540) 10/16/20 14:55 IgA Total 153 mg/dL (70-320) 10/16/20 14:55 IgM 57 mg/dL (50-300) 10/16/20 14:55 RAMEZ Interpretation SEE NOTE 10/16/20 14:55 Blood Type A Positive 10/16/20 14:46 Antibody Screen TNP 10/16/20 14:46 Progress Note: A/P (1) Anemia Status: Acute - Time Spent With Patient Total time spent is greater than 50% in coordination of care (as documented) at patient's floor/unit and/or counseling patient: 25 - 35 minutes
--- NOTE | 2021-02-18 15:52 | MHC.HEMONCMA ---
Pt is having a televisit. History was reviewed with spouse.
--- NOTE | 2021-02-18 15:54 | P.PNHO_ITS ---
[facility] Telehealth - Telehealth Location of Provider rendering services: Hem/Onc office. Location of Patient: Home. Patient Identification confirmed using: Name, : Yes Telehealth Method: Via telephone. Patient verbally consented to treatment: Yes. Patient verbally consented to billing insurance company: Yes Patient informed of any privacy concerns related to visit: Yes Medical Summary - Medical Summary Date of Service: 02/18/21 Chief complaint: Follow-up for: Anemia. Medical Summary: DIAGNOSIS: ANEMIA. Interval History Interval history: Shay Cano is a pleasant 80 year old gentleman, with H/O Alzheimer's disease. He is non verbal. Hard to understand how much he understands. He is total care. His bathes and feeds him. A tele visit was held with his . She tells me that, lately it seems he has been getting more tired. His legs seemed to be weaker. He can hardly walk. He is mostly lying in bed. He denies any obvious chest pain or trouble breathing. He denies any abdominal pain, nausea nor vomiting. He bowels are constipated, despite being on a stool softener. He has not gone for the past 5 days. No gross blood in the bowels. He has a good apetite. He has gained weight. Review of Systems - Constitutional Reports system reviewed and no additional complaints, except as documented, Reports fatigue, Reports lack of energy, Reports malaise, Denies fever(s) - Eyes Reports system reviewed and no additional complaints, except as documented - ENT Reports system reviewed and no additional complaints, except as documented - Cardiovascular Reports system reviewed and no additional complaints, except as documented - Respiratory Reports no additional respiratory complaints - Gastrointestinal Reports system reviewed and no additional complaints, except as documented, Re ports constipation - Genitourinary Genitourinary: Reports no additional male genitourinary complaints - Musculoskeletal Reports system reviewed and no additional complaints, except as documented - Integumentary/Breasts Skin/Breast: Reports no additional skin complaints - Neurologic Reports system reviewed and no additional complaints, except as documented, Reports abnormal gait, Reports lack of coordination, Reports memory loss, Reports weakness - Psychiatric Reports system reviewed and no additional complaints, except as documented - Endocrine Reports no additional endocrine complaints - Hematologic/Lymphatic Reports system reviewed and no additional complaints, except as documented - Allergic/Immunologic Reports system reviewed and no additional complaints, except as documented Oncology Screenings - ECOG Performance Status ECOG Performance Status: 3 Home Medications and Allergies Home Medications Medication Instructions Recorded Confirmed Type aspirin 81 mg tablet,delayed 81 mg PO DAILY 09/24/20 10/16/20 History release rosuvastatin 20 mg tablet 20 mg PO DAILY 09/24/20 10/16/20 History Allergies Allergy/AdvReac Type Severity Reaction Status Date / Time simvastatin [SIMVASTATIN] Allergy Unknown UNKNOWN, Verified 09/24/20 13:00 rash Exam Vital signs: Vital Signs Temp 98.0 F 11/12/20 11:34 Pulse 82 11/12/20 11:34 Resp 12 11/12/20 11:34 BP 151/83 H 11/12/20 11:34 Pulse Ox 100 11/12/20 11:34 Weight 66.3 kg Body Mass Index 24.3 - Constitutional Present: no acute distress - Routine HEENT Exam Head: Present: normal inspection - Routine Respiratory Exam Present: CTAB - Routine Cardiovascular Exam Cardiovascular: Present: RRR, S2 - Routine Abdominal Exam Present: soft, nontender - Routine Extremities Exam Present: nontender - Routine Skin Exam Present: intact - Routine Neurological Exam Present: alert, altered mental status - Detailed Neurological Exam: Coma Scale Eye Opening: Spontaneous (4) Data - Labs CBC & Chem 7: 10/16/20 14:55 10/16/20 14:55 Labs: 10/16/20 14:46 Type and Screen Routine 10/16/20 14:55 Complete Blood Count Man Dif Routine Comprehensive Met. Panel Routine Ferritin Routine Haptoglobin Routine IRON PROFILE Routine Immunofixation Pnl, Serum Routine Lactate Dehydrogenase Routine Reticulocyte Count Routine Vitamin B12 and Folate Routine Laboratory Last Values WBC 9.7 X10*3/uL (4.8-10.8) 10/16/20 14:55 RBC 3.02 X10*6/uL (4.60-5.80) L 10/16/20 14:55 Hgb 9.1 g/dl (14.0-18.0) L 10/16/20 14:55 Hct 29.7 % (42-52) L 10/16/20 14:55 MCV 98.3 fL (80-98) H 10/16/20 14:55 MCH 30.1 pg (27.0-33.0) 10/16/20 14:55 MCHC 30.6 g/dl (31.0-36.0) L 10/16/20 14:55 RDW 19.4 % (11.0-16.0) H 10/16/20 14:55 Plt Count 289 X10*3/uL (160-400) 10/16/20 14:55 MPV 11.5 fL (9.4-12.4) 10/16/20 14:55 Absolute Nucleated RBC 0.130 X10*3/uL (0.0-0.012) H 10/16/20 14:55 Nucleated RBC % (auto) 1.3 /100WBC (0.0-0.2) H 10/16/20 14:55 Neutrophils % (Manual) 45 % (45-73) 10/16/20 14:55 Band Neutrophils % 23 % (3-5) H 10/16/20 14:55 Lymphocytes % (Manual) 14 % (20-40) L 10/16/20 14:55 Atypical Lymphs % (Man) 1 % (0-6) 10/16/20 14:55 Monocytes % (Manual) 3 % (2-11) 10/16/20 14:55 Basophils % (Manual) 2 % (0-1) H 10/16/20 14:55 Metamyelocytes % 5 % 10/16/20 14:55 Myelocytes % 7 % 10/16/20 14:55 Abs Neuts (Manual) 6.6 X10*3/uL (2.2-7.9) 10/16/20 14:55 Lymphocytes # (Manual) 1.4 X10*3/uL (0.6-4.8) 10/16/20 14:55 Atyp Lymphs # (Manual) 0.1 x10*3/uL 10/16/20 14:55 Monocytes # (Manual) 0.3 X10*3/uL (0.0-1.2) 10/16/20 14:55 Basophils # (Manual) 0.2 X10*3/uL (0.0-0.3) 10/16/20 14:55 Metamyelocytes # 0.5 X10*3/uL 10/16/20 14:55 Myelocytes # 0.7 X10*/uL 10/16/20 14:55 Platelet Estimate NORMAL (NORMAL) 10/16/20 14:55 Large Platelets PRESENT 10/16/20 14:55 Plt Morphology Comment NORMAL 10/16/20 14:55 RBC Morphology NOTED 10/16/20 14:55 Polychromasia 1+ 10/16/20 14:55 Tear Drop Cells 1+ 10/16/20 14:55 Ovalocytes 1+ 10/16/20 14:55 Absolute Retic 0.102 X10*6/uL (0.026-0.095) H 10/16/20 14:55 Percent Retic 3.4 % (0.5-1.8) H 10/16/20 14:55 Immature Retic Fraction 33.5 % (2.3-13.4) H 10/16/20 14:55 Retic Hgb Equivalent 30.5 pg (30.0-35.0) 10/16/20 14:55 Haptoglobin 44 mg/dL (43-212) 10/16/20 14:55 Sodium 138 mmol/L (135-145) 10/16/20 14:55 Potassium 4.9 mmol/l (3.3-5.1) 10/16/20 14:55 Chloride 103 mmol/L (96-108) 10/16/20 14:55 Carbon Dioxide 28 mmol/L (22-29) 10/16/20 14:55 Anion Gap 12 (-20) 10/16/20 14:55 BUN 18 mg/dL (9-16) H 10/16/20 14:55 Creatinine 0.75 mg/dL (0.5-1.4) 10/16/20 14:55 Estim Creat Clear Calc 67.1 10/16/20 14:55 Estimated GFR > 60 10/16/20 14:55 Random Glucose 95 mg/dL (60-115) 10/16/20 14:55 Calcium 8.6 mg/dL (8.4-10.2) 10/16/20 14:55 Iron 112 mcg/dL (45-160) 10/16/20 14:55 TIBC 270 mcg/dL (228-428) 10/16/20 14:55 % Saturation 41 % (15-50) 10/16/20 14:55 Unsat Iron Binding 158 ug/dL 10/16/20 14:55 Ferritin 176 ng/mL (20-250) 10/16/20 14:55 Total Bilirubin 0.8 mg/dL (0.0-1.0) 10/16/20 14:55 AST 42 U/L (5-37) H 10/16/20 14:55 ALT 25 U/L (0-40) 10/16/20 14:55 Alkaline Phosphatase 92 U/L (39-117) 10/16/20 14:55 Lactate Dehydrogenase 469 U/L (118-273) H 10/16/20 14:55 Total Protein 6.5 g/dL (6.5-8.0) 10/16/20 14:55 Albumin 4.3 g/dL (3.5-5.0) 10/16/20 14:55 Vitamin B12 630 pg/mL (200-900) 10/16/20 14:55 Folate 7.0 ng/mL (> or = 4.0) 10/16/20 14:55 IgG Total 986 mg/dL (600-1540) 10/16/20 14:55 IgA Total 153 mg/dL (70-320) 10/16/20 14:55 IgM 57 mg/dL (50-300) 10/16/20 14:55 RAMEZ Interpretation SEE NOTE 10/16/20 14:55 Blood Type A Positive 10/16/20 14:46 Antibody Screen TNP 10/16/20 14:46 Progress Note: A/P (1) Anemia Status: Acute Assessment and plan: This is a pleasant 80-year-old gentleman with history of Alzheimer's Disease who has deteriorated in the past couple of years. He has been gradually getting more anemic. His CBC from March 08: WBC 10.5, ABS NEUT COUNT 8.0, ANC 6.7,RBC 4.02, HGB 12.6, HCT 37.7,MCV 93.7, MCH 31.4, MCHC 33.5, PLATELET 360. His CBC: From September 17: WBC 10, HGB 10.1, PLT 299. Peripheral smear: Leukoerythroblastosis. Left-shifted granulocytes are present, Including rare blasts. A few nucleated red blood cells are seen as well as some ovalocytes and Dacrocyanosis. Findings raise the possibility of a marrow disorder. 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 DIFFERENTIAL DIAGNOSIS: 2. IRON DEFICIENCY ANEMIA: will check iron studies and a ferritin. 3. HEMOLYTIC ANEMIA: will check a hemolytic screen. 4. B12/FOLATE DEFICIENCY: Check B12 and folate levels. 5. ACD: from kidney disease. 6. ANOTHER MYELO INFILTRATIVE DISORDER I.E. MULTIPLE MYELOMA, OR LYMPHOMA. l proceeded with an anemia workup. Checked LDH and SIEP. I proceeded with a type and screen in case he needs a transfusion. Patient's daughter called the following day. She said they had a family meeting with her mom and brothers. They are concerned that he would not understand and can be scared from the bone marrow procedure. They also decided not to proceed with any chemotherapy even if there were to make a diagnosis. They would like to focus more on palliative care. I did offer blood transfusions if they were interested. They would like to give blood transfusion as needed to help quality of life. Right now hemoglobin from 11/02 was 9.3. His condition is not good. It appears he is slowly deteriorating. His would like us to check his labs at home, since it is hard for them to bring him for appointments. PLAN: Will check labs by phlebotomy at home, tomorrow. Actually his CBC revealed WBC 9.7, HGB 9.1, HCT 29.2, PLT 289. He does not need a transfusion at this point. I did talk to his at length about palliative care and referral to hospice. She does not feel he needs it right now but she will give it some more thought and get back to me. He will return in a month for a follow-up visit. 30 minutes was spent coordinating his care including the tele visit, review of labs, review of imaging, and counseling his . Thank you, CC: Dr. Darrius Felipe. SSS. - Time Spent With Patient Total time spent is greater than 50% in coordination of care (as documented) at patient's floor/unit and/or counseling patient: 25 - 35 minutes
--- NOTE | 2021-03-07 13:29 | HO.HEMONCTE1 ---
[facility] Telehealth - Telehealth Location of Provider rendering services: HEM/ONC OFFICE. Location of Patient: HOME. Patient Identification confirmed using: Name, : Yes Telehealth Method: TELEPHONE. Patient verbally consented to treatment: YES Patient verbally consented to billing insurance company: Yes Patient informed of any privacy concerns related to visit: Yes Medical Summary - Medical Summary Date of Service: 03/07/21 Chief complaint: TELE VISIT FOR: ANEMIA. Medical Summary: DIAGNOSIS: ANEMIA. Interval History Interval history: Shay Cano is a pleasant 80 year old gentleman, with H/O Alzheimer's disease. He is non verbal. Hard to understand how much he understands. He is total care. His bathes and feeds him. A tele visit was held with his son. [place] however is visiting his mom and dad to help with his care, and to give mom a break. He tells me that, lately it seems he has been getting more tired. His legs seemed to be weaker. He can hardly walk. He is mostly bed ridden. He denies any obvious chest pain or trouble breathing. He denies any abdominal pain, nausea nor vomiting. He bowels are constipated, despite being on a stool softener. No gross blood in the bowels. He has a good apetite. He has gained weight. Review of Systems - Constitutional Reports no additional constitutional complaints, Reports lack of energy, Reports malaise, Reports poor appetite, Reports weight loss - Eyes Reports no additional eye complaints - ENT Reports no additional ear, nose, mouth, and throat complaints - Cardiovascular Reports no additional cardiovascular complaints - Respiratory Reports no additional respiratory complaints - Gastrointestinal Reports no additional gastrointestinal complaints, Reports constipation - Genitourinary Genitourinary: Reports no additional male genitourinary complaints - Musculoskeletal Reports no additional musculoskeletal complaints - Integumentary/Breasts Skin/Breast: Reports no additional skin complaints - Neurologic Reports no additional neurologic complaints, Reports abnormal speech, Reports abnormal gait, Reports lack of coordination, Reports memory loss, Reports weakness - Psychiatric Reports no additional psychiatric complaints - Endocrine Reports no additional endocrine complaints - Hematologic/Lymphatic Reports no additional hematologic/lymphatic complaints - Allergic/Immunologic Reports no additional allergic/immunologic complaints Oncology Screenings - ECOG Performance Status ECOG Performance Status: 2 Home Medications and Allergies Home Medications Medication Instructions Recorded Confirmed Type aspirin 81 mg tablet,delayed 81 mg PO DAILY 09/24/20 10/16/20 History release rosuvastatin 20 mg tablet 20 mg PO DAILY 09/24/20 10/16/20 History Allergies Allergy/AdvReac Type Severity Reaction Status Date / Time simvastatin [SIMVASTATIN] Allergy Unknown UNKNOWN, Verified 09/24/20 13:00 rash Exam Vital signs: Vital Signs Temp 98.0 F 11/12/20 11:34 Pulse 82 11/12/20 11:34 Resp 12 11/12/20 11:34 BP 151/83 H 11/12/20 11:34 Pulse Ox 100 11/12/20 11:34 Weight 66.3 kg Body Mass Index 24.3 - Constitutional Present: no acute distress - Routine HEENT Exam Head: Present: normal inspection - Routine Respiratory Exam Present: CTAB - Routine Cardiovascular Exam Cardiovascular: Present: RRR, S2 - Routine Abdominal Exam Present: soft, nontender - Routine Extremities Exam Present: nontender - Routine Skin Exam Present: intact - Routine Neurological Exam Present: alert, altered mental status - Detailed Neurological Exam: Coma Scale Eye Opening: Spontaneous (4) Data - Labs CBC & Chem 7: 10/16/20 14:55 10/16/20 14:55 Labs: 10/16/20 14:46 Type and Screen Routine 10/16/20 14:55 Complete Blood Count Man Dif Routine Comprehensive Met. Panel Routine Ferritin Routine Haptoglobin Routine IRON PROFILE Routine Immunofixation Pnl, Serum Routine Lactate Dehydrogenase Routine Reticulocyte Count Routine Vitamin B12 and Folate Routine Laboratory Last Values WBC 9.7 X10*3/uL (4.8-10.8) 10/16/20 14:55 RBC 3.02 X10*6/uL (4.60-5.80) L 10/16/20 14:55 Hgb 9.1 g/dl (14.0-18.0) L 10/16/20 14:55 Hct 29.7 % (42-52) L 10/16/20 14:55 MCV 98.3 fL (80-98) H 10/16/20 14:55 MCH 30.1 pg (27.0-33.0) 10/16/20 14:55 MCHC 30.6 g/dl (31.0-36.0) L 10/16/20 14:55 RDW 19.4 % (11.0-16.0) H 10/16/20 14:55 Plt Count 289 X10*3/uL (160-400) 10/16/20 14:55 MPV 11.5 fL (9.4-12.4) 10/16/20 14:55 Absolute Nucleated RBC 0.130 X10*3/uL (0.0-0.012) H 10/16/20 14:55 Nucleated RBC % (auto) 1.3 /100WBC (0.0-0.2) H 10/16/20 14:55 Neutrophils % (Manual) 45 % (45-73) 10/16/20 14:55 Band Neutrophils % 23 % (3-5) H 10/16/20 14:55 Lymphocytes % (Manual) 14 % (20-40) L 10/16/20 14:55 Atypical Lymphs % (Man) 1 % (0-6) 10/16/20 14:55 Monocytes % (Manual) 3 % (2-11) 10/16/20 14:55 Basophils % (Manual) 2 % (0-1) H 10/16/20 14:55 Metamyelocytes % 5 % 10/16/20 14:55 Myelocytes % 7 % 10/16/20 14:55 Abs Neuts (Manual) 6.6 X10*3/uL (2.2-7.9) 10/16/20 14:55 Lymphocytes # (Manual) 1.4 X10*3/uL (0.6-4.8) 10/16/20 14:55 Atyp Lymphs # (Manual) 0.1 x10*3/uL 10/16/20 14:55 Monocytes # (Manual) 0.3 X10*3/uL (0.0-1.2) 10/16/20 14:55 Basophils # (Manual) 0.2 X10*3/uL (0.0-0.3) 10/16/20 14:55 Metamyelocytes # 0.5 X10*3/uL 10/16/20 14:55 Myelocytes # 0.7 X10*/uL 10/16/20 14:55 Platelet Estimate NORMAL (NORMAL) 10/16/20 14:55 Large Platelets PRESENT 10/16/20 14:55 Plt Morphology Comment NORMAL 10/16/20 14:55 RBC Morphology NOTED 10/16/20 14:55 Polychromasia 1+ 10/16/20 14:55 Tear Drop Cells 1+ 10/16/20 14:55 Ovalocytes 1+ 10/16/20 14:55 Absolute Retic 0.102 X10*6/uL (0.026-0.095) H 10/16/20 14:55 Percent Retic 3.4 % (0.5-1.8) H 10/16/20 14:55 Immature Retic Fraction 33.5 % (2.3-13.4) H 10/16/20 14:55 Retic Hgb Equivalent 30.5 pg (30.0-35.0) 10/16/20 14:55 Haptoglobin 44 mg/dL (43-212) 10/16/20 14:55 Sodium 138 mmol/L (135-145) 10/16/20 14:55 Potassium 4.9 mmol/l (3.3-5.1) 10/16/20 14:55 Chloride 103 mmol/L (96-108) 10/16/20 14:55 Carbon Dioxide 28 mmol/L (22-29) 10/16/20 14:55 Anion Gap 12 (-) 10/16/20 14:55 BUN 18 mg/dL (9-16) H 10/16/20 14:55 Creatinine 0.75 mg/dL (0.5-1.4) 10/16/20 14:55 Estim Creat Clear Calc 67.1 10/16/20 14:55 Estimated GFR > 60 10/16/20 14:55 Random Glucose 95 mg/dL (60-115) 10/16/20 14:55 Calcium 8.6 mg/dL (8.4-10.2) 10/16/20 14:55 Iron 112 mcg/dL (45-160) 10/16/20 14:55 TIBC 270 mcg/dL (228-428) 10/16/20 14:55 % Saturation 41 % (15-50) 10/16/20 14:55 Unsat Iron Binding 158 ug/dL 10/16/20 14:55 Ferritin 176 ng/mL (20-250) 10/16/20 14:55 Total Bilirubin 0.8 mg/dL (0.0-1.0) 10/16/20 14:55 AST 42 U/L (5-37) H 10/16/20 14:55 ALT 25 U/L (0-40) 10/16/20 14:55 Alkaline Phosphatase 92 U/L (39-117) 10/16/20 14:55 Lactate Dehydrogenase 469 U/L (118-273) H 10/16/20 14:55 Total Protein 6.5 g/dL (6.5-8.0) 10/16/20 14:55 Albumin 4.3 g/dL (3.5-5.0) 10/16/20 14:55 Vitamin B12 630 pg/mL (200-900) 10/16/20 14:55 Folate 7.0 ng/mL (> or = 4.0) 10/16/20 14:55 IgG Total 986 mg/dL (600-1540) 10/16/20 14:55 IgA Total 153 mg/dL (70-320) 10/16/20 14:55 IgM 57 mg/dL (50-300) 10/16/20 14:55 RAMEZ Interpretation SEE NOTE 10/16/20 14:55 Blood Type A Positive 10/16/20 14:46 Antibody Screen TNP 10/16/20 14:46 Progress Note: A/P (1) Anemia Status: Acute Assessment and plan: This is a pleasant 80-year-old gentleman with history of Alzheimer's Disease who has deteriorated in the past couple of years. He has been gradually getting more anemic. His CBC from March 08: WBC 10.5, ABS NEUT COUNT 8.0, ANC 6.7,RBC 4.02, HGB 12.6, HCT 37.7,MCV 93.7, MCH 31.4, MCHC 33.5, PLATELET 360. His CBC: From September 17: WBC 10, HGB 10.1, PLT 299. Peripheral smear: Leukoerythroblastosis. Left-shifted granulocytes are present, Including rare blasts. A few nucleated red blood cells are seen as well as some ovalocytes and Dacrocyanosis. Findings raise the possibility of a marrow disorder. 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 DIFFERENTIAL DIAGNOSIS: 2. IRON DEFICIENCY ANEMIA: will check iron studies and a ferritin. 3. HEMOLYTIC ANEMIA: will check a hemolytic screen. 4. B12/FOLATE DEFICIENCY: Check B12 and folate levels. 5. ACD: from kidney disease. 6. ANOTHER MYELO INFILTRATIVE DISORDER I.E. MULTIPLE MYELOMA, OR LYMPHOMA. l proceeded with an anemia workup. Checked LDH and SIEP. I proceeded with a type and screen in case he needs a transfusion. Patient's daughter called the following day. She said they had a family meeting with her mom and brothers. They are concerned that he would not understand and can be scared from the bone marrow procedure. They also decided not to proceed with any chemotherapy even if there were to make a diagnosis. They would like to focus more on palliative care. I did offer blood transfusions if they were interested. They would like to give blood transfusion as needed to help quality of life. His hemoglobin from 11/02 was 9.3. His condition has not been good. It appears he is progressively deteriorating. His w wanted me to check his labs at home, since it is hard for them to bring him for appointments. Actually his CBC revealed WBC 9.7, HGB 9.1, HCT 29.2, PLT 289. He did not need a blood transfusion. I discussed with his son Wayne, at length about his guarded prognosis. He had questions about palliative care and referral to hospice. I went over the philosophy of hospice and the referral procedure and the type of care that they would be able to provide. He is interested in knowing more about it. He feels it would help his mom to have hospice involved at this point. PLAN: I requested Sarah Villafuerte to make an informational visit. I gave her the son's phone number to call, with his permission. I will be available to help with his cares in conjunction with the hospice team. 24 minutes was spent coordinating his care including the tele visit, review of labs, review of imaging, and counseling his son. Thank you, CC: Dr. Darrius Felipe. - Time Spent With Patient Total time spent is greater than 50% in coordination of care (as documented) at patient's floor/unit and/or counseling patient: 15 - 24 minutes
--- NOTE | 2021-03-15 08:29 | MHC.HEMONCSW ---
PER DR. RUIZ IT IS FINE FOR PATIENT TO GO ONTO OUR HOSPICE PROGRAM. THIS MESSAGE WAS LEFT ON [facility].
--- NOTE | 2021-03-25 13:44 | MHC.HEMONCSW ---
REGARDING HOSPICE REFERRAL.... WANTS TO SEE RESULTS OF TOMORROWS LAB DRAW TO SEE IF HE WOULD BENEFIT FROM TRANSFUSIONS...IF NOT SHE WILL HAVE PATIENT RECEIVE HOSPICE SERVICES.
== END 2021-08-27 | disposition home or self-care (01) ==
LOC: HO.ONC 11:30
PROVIDERS: PCP Internal Medicine; Referring Provider Internal Medicine; Visit Provider Internal Medicine Medical Oncology
DX: D64.9 Anemia, unspecified (principal); G30.9 Alzheimer's disease, unspecified; F02.80 Dementia in other diseases classified elsewhere, unspecified severity, without behavioral disturbance, psychotic disturbance, mood disturbance, and anxiety
CPT/HCPCS: 36415; 80053; 82607; 82728; 82746; 82784; 83010; 83540; 83615; 85007; 85027; 85045; 86334; 86900; 86901; 99204; 99214; Q3014

== ENCOUNTER 2021-03-26 00:12 | Outpatient (REF) | payer MEDICARE, SELFPAY ==
[2021-03-26 11:51] LABS: Hematocrit 28.3 % (42-52); Hemoglobin 8.5 g/dl (14.0-18.0); Mean Corpuscular Hemoglobin 30.6 pg (27.0-33.0); Mean Corpuscular Volume 101.8 fL (80-98); Mean Platelet Volume 11.3 fL (9.4-12.4); Platelet Count 242 X10*3/uL (160-400); Red Blood Count 2.78 X10*6/uL (4.60-5.80); Red Cell Distribution Width 19.4 % (11.0-16.0); White Blood Count 10.8 X10*3/uL (4.8-10.8)
[2021-03-26 11:53] LABS: NRBC Pct Auto 1.3 /100WBC (0.0-0.2)
[2021-03-26 12:22] LABS: Alanine Aminotransferase 22 U/L (0-40); Alkaline Phosphatase 129 U/L (39-117); Anion Gap 12 (12-20); Aspartate Amino Transferase 47 U/L (5-37); Bilirubin Total 0.9 mg/dL (0.0-1.0); Blood Urea Nitrogen 18 mg/dL (9-16); Carbon Dioxide 29 mmol/L (22-29); Chloride 102 mmol/L (96-108); Estimated Glomerular Filt Rate > 60; Glucose Random 168 mg/dL (60-115); Potassium 4.2 mmol/L (3.3-5.1); Sodium 139 mmol/L (135-145); Total Protein 6.3 g/dL (6.5-8.0)
== END 2021-03-26 00:13 | disposition home or self-care (01) ==
LOC: HO.LHD 00:12
PROVIDERS: Visit Provider Internal Medicine Medical Oncology
DX: D75.9 Disease of blood and blood-forming organs, unspecified (principal)
CPT/HCPCS: 36415; 80053; 85027

== ENCOUNTER 2021-04-23 01:03 | Outpatient (REF) | payer MEDICARE, SELFPAY | END 2021-04-23 01:04 | disposition home or self-care (01) | LOC: HO.LHD 01:03 | PROVIDERS: Visit Provider Internal Medicine Medical Oncology | DX: Z13.89 Encounter for screening for other disorder (principal) ==